=== PATIENT | female | born 1960 | race Caucasian/White ===

== ENCOUNTER 2019-06-30 13:57 | Emergency (ER) | payer OTHER ==
[2019-06-30] MEDS ORDERED: Famotidine 20 MG/2 ML SDV IVPUSH ONE (14:28)
[2019-06-30] MEDS ORDERED: Alum Hydrox/Mag Hydrox/Simeth 30 ML, Lidocaine 2% 15 ML PO ONE ×2 (14:28)
--- NOTE | 2019-06-30 14:40 | EDM.PDOC ---
ED HPI GENERAL MEDICAL PROBLEM - General Chief Complaint: Chest Pain Stated Complaint: CHEST PAIN AND BACK PAIN Time Seen by Provider: 06/30/19 14:11 Source of Information: Reports: Patient History Limitations: Reports: No Limitations - History of Present Illness INITIAL COMMENTS - FREE TEXT/NARRATIVE: Dawn Galvez is a 59 y/o female with history of diabetes emergency room chief complaints of chest pain. She reports pain started this morning at about 930. Reports pain is in the middle of her chest and radiates to her back. She denies shortness of breath, nausea, vomiting, fever or chills. Reports the pain feels almost like she is having heartburn. She attempted to take 5 Tums but has had little to no relief. She currently reports her pain is a 6 out of 10 at no apparent distress at this time. Onset Date: 06/30/19 Onset Time: 08:30 Duration: Intermittent Location: Reports: Chest, Back Quality: Reports: Ache, Dull Severity: Mild Improves with: Reports: None Worsens with: Reports: None Associated Symptoms: Reports: Chest Pain. Denies: Cough, Fever/Chills, Nausea/ Vomiting, Shortness of Breath Chest Pain Score (Numeric/FACES): 7 - Related Data Allergies Allergy/AdvReac Type Severity Reaction Status Date / Time No Known Allergies Allergy Verified 06/30/19 14:12 Home Meds: Home Meds Glimepiride [Amaryl] 4 mg PO DAILY 01/11/14 [History] Multivitamin [Multivitamins] 1 each PO DAILY 01/11/14 [History] Cinnamon Bark [Cinnamon] 1,000 mg PO DAILY 06/30/19 [History] Empagliflozin [Jardiance] 10 mg PO DAILY 06/30/19 [History] Famotidine [Pepcid] 20 mg PO DAILY #30 tab 06/30/19 [Rx] atorvaSTATin [Lipitor] 80 mg PO BEDTIME 06/30/19 [History] sitaGLIPtin Phos/Metformin HCl [Janumet Xr 50-1,000 mg Tablet] 50 - 1,000 mg PO BID 06/30/19 [History] Past Medical History HEENT History: Reports: Cataract, Impaired Vision Other HEENT History: used to wear eyeglasses, now wears "cheaters" for reading. Cardiovascular History: Reports: High Cholesterol, Other (See Below) Other Cardiovascular History: leaky heart valve--"doesn't relax enough to close. 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: Musculoskeletal History: Reports: Fracture Endocrine/Metabolic History: Reports: Diabetes, Type II Hematologic History: Reports: Anemia Other Hematologic History: during Dermatologic History: Reports: Eczema - Infectious Disease History Infectious Disease History: Reports: Chicken Pox, Measles - Past Surgical History HEENT Surgical History: Reports: Cataract Surgery GI Surgical History: Reports: Colonoscopy Female Surgical History: Reports: Tubal Ligation Social & Family History - Tobacco Use Smoking Status *Q: Never Smoker - Caffeine Use Caffeine Use: Reports: Soda - Recreational Drug Use Recreational Drug Use: No ED ROS GENERAL - Review of Systems Review Of Systems: See Below Constitutional: Denies: Fever, Chills HEENT: Reports: Glasses Respiratory: Denies: Shortness of Breath Cardiovascular: Denies: Chest Pain GI/Abdominal: Reports: Abdominal Pain. Denies: Constipation, Diarrhea, Nausea, Vomiting : Reports: No Symptoms Musculoskeletal: Reports: Shoulder Pain Skin: Reports: No Symptoms Neurological: Reports: No Symptoms Psychiatric: Reports: No Symptoms Hematologic/Lymphatic: Reports: No Symptoms Immunologic: Reports: No Symptoms ED EXAM, GENERAL - Physical Exam Exam: See Below Exam Limited By: No Limitations General Appearance: Alert, WD/WN, No Apparent Distress Neck: Normal Inspection, Supple, Non-Tender, Full Range of Motion Respiratory/Chest: No Respiratory Distress, Lungs Clear, Normal Breath Sounds, No Accessory Muscle Use, Chest Non-Tender Cardiovascular: Normal Peripheral Pulses, Regular Rate, Rhythm, No Edema, No Gallop, No JVD, No Murmur, No Rub GI/Abdominal: Normal Bowel Sounds, Soft, Non-Tender, No Organomegaly, No Distention, No Abnormal Bruit, No Mass, Pelvis Stable Back Exam: Normal Inspection, Full Range of Motion Extremities: Normal Inspection, Normal Range of Motion, Non-Tender, No Pedal Edema, Normal Capillary Refill Neurological: Alert, Oriented, CN II-XII Intact, Normal Cognition, Normal Gait Psychiatric: Normal Affect, Normal Mood Skin Exam: Warm, Dry, Intact, Normal Color Lymphatic: No Adenopathy EKG INTERPRETATION EKG Date: 06/30/19 Time: 14:06 Rhythm: NSR Rate (Beats/Min): 79 Course - Vital Signs Text/Narrative:: Dawn Galvez is a 59-year-old female with a history of diabetes comes in with chief complaints of new onset chest pain that started this morning. She describes the pain as a dull burning sensation similar to indigestion. Reports taking 5 Tums at home but has had little to no relief. I will order an EKG, lab work, chest x-ray. I will medicate with IV Pepcid and GI cocktail. Last Recorded V/S: Last Vital Signs Temp 97.8 F 06/30/19 14:00 Pulse 86 06/30/19 14:00 Resp 16 06/30/19 14:00 BP 141/60 H 06/30/19 14:00 Pulse Ox 95 06/30/19 14:00 - Orders/Labs/Meds Orders: Active Orders 24 hr Category Date Time Status EKG Documentation Completion [RC] STAT Care 06/30/19 14:11 Active Chest 2V [CR] Stat Exams 06/30/19 14:12 Taken Labs: Laboratory Tests 06/30/19 06/30/19 06/30/19 Range/Units 14:05 14:05 14:05 WBC 9.04 (3.98-10.04) K/mm3 RBC 5.08 (3.98-5.22) M/mm3 Hgb 13.8 (11.2-15.7) gm/dl Hct 43.2 (34.1-44.9) % MCV 85.0 (79.4-94.8) fl MCH 27.2 (25.6-32.2) pg MCHC 31.9 L (32.2-35.5) g/dl RDW Std Deviation 44.7 (36.4-46.3) fL Plt Count 280 (182-369) K/mm3 MPV 9.1 L (9.4-12.3) fl Neut % (Auto) 69.2 (34.0-71.1) % Lymph % (Auto) 20.5 (19.3-51.7) % [place] % (Auto) 8.6 (4.7-12.5) % Eos % (Auto) 1.4 (0.7-5.8) Baso % (Auto) 0.1 (0.1-1.2) % Neut # (Auto) 6.25 H (1.56-6.13) K/mm3 Lymph # (Auto) 1.85 (1.18-3.74) K/mm3 [place] # (Auto) 0.78 H (0.24-0.36) K/mm3 Eos # (Auto) 0.13 (0.04-0.36) K/mm3 Baso # (Auto) 0.01 (0.01-0.08) K/mm3 PT 9.6 L (9.7-12.0) SECONDS INR 0.93 Sodium 144 (136-145) mEq/L Potassium 3.9 (3.5-5.1) mEq/L Chloride 106 (98-107) mEq/L Carbon Dioxide 29 (21-32) mEq/L Anion Gap 12.9 (5-15) BUN 12 (7-18) mg/dL Creatinine 0.8 (0.55-1.02) mg/dL Est Cr Clr Drug Dosing 55.06 mL/min Estimated GFR (MDRD) > 60 (>60) mL/min BUN/Creatinine Ratio 15.0 (14-18) Glucose 269 H (74-106) mg/dL Calcium 9.9 (8.5-10.1) mg/dL Total Bilirubin 0.4 (0.2-1.0) mg/dL AST 16 (15-37) U/L ALT 31 (14-59) U/L Alkaline Phosphatase 119 H (46-116) U/L Troponin I < 0.017 (0.00-0.056) ng/mL Total Protein 7.4 (6.4-8.2) g/dl Albumin 3.8 (3.4-5.0) g/dl Globulin 3.6 gm/dL Albumin/Globulin Ratio 1.1 (1-2) Lipase (73-393) U/L 05/05/20 Range/Units 14:05 WBC (3.98-10.04) K/mm3 RBC (3.98-5.22) M/mm3 Hgb (11.2-15.7) gm/dl Hct (34.1-44.9) % MCV (79.4-94.8) fl MCH (25.6-32.2) pg MCHC (32.2-35.5) g/dl RDW Std Deviation (36.4-46.3) fL Plt Count (182-369) K/mm3 MPV (9.4-12.3) fl Neut % (Auto) (34.0-71.1) % Lymph % (Auto) (19.3-51.7) % [place] % (Auto) (4.7-12.5) % Eos % (Auto) (0.7-5.8) Baso % (Auto) (0.1-1.2) % Neut # (Auto) (1.56-6.13) K/mm3 Lymph # (Auto) (1.18-3.74) K/mm3 [place] # (Auto) (0.24-0.36) K/mm3 Eos # (Auto) (0.04-0.36) K/mm3 Baso # (Auto) (0.01-0.08) K/mm3 PT (9.7-12.0) SECONDS INR Sodium (136-145) mEq/L Potassium (3.5-5.1) mEq/L Chloride (98-107) mEq/L Carbon Dioxide (21-32) mEq/L Anion Gap (5-15) BUN (7-18) mg/dL Creatinine (0.55-1.02) mg/dL Est Cr Clr Drug Dosing mL/min Estimated GFR (MDRD) (>60) mL/min BUN/Creatinine Ratio (14-18) Glucose (74-106) mg/dL Calcium (8.5-10.1) mg/dL Total Bilirubin (0.2-1.0) mg/dL AST (15-37) U/L ALT (14-59) U/L Alkaline Phosphatase (46-116) U/L Troponin I (0.00-0.056) ng/mL Total Protein (6.4-8.2) g/dl Albumin (3.4-5.0) g/dl Globulin gm/dL Albumin/Globulin Ratio (1-2) Lipase 186 (73-393) U/L Meds: Medications Discontinued Medications Generic Name Dose Route Start Last Admin Trade Name Freq PRN Reason Stop Dose Admin Al Hydroxide/Mg Hydroxide 30 0 ml 06/30/19 14:28 06/30/19 14:57 ml/ Lidocaine HCl 15 ml PO 06/30/19 14:29 45 ml ONETIME ONE Administration Famotidine 20 mg 06/30/19 14:28 06/30/19 14:56 Pepcid IVPUSH 06/30/19 14:29 20 mg ONETIME ONE Administration - Re-Assessments/Exams Free Text/Narrative Re-Assessment/Exam: 06/30/19 14:52 EKG revealed normal sinus rhythm. WBCs 9.04, RBCs 5.08, hemoglobin 13.8, hematocrit 43.2, platelet count 280, PT 9.6, INR 0.93, sodium 144, potassium 3.9 , chloride 106, CO2 29, BUN 12, creatinine 0.8, glucose 269, alk phos 119, lipase 186, and troponin 0 0.017. 06/30/19 15:33 Patient reports she is feeling better. States that her pain is now a 1. Doing her labs which were unremarkable EKG which is normal sinus rhythm and chest x- ray revealed no acute findings. I will discharge home with Pepcid. I discussed test results with patient and formulated a plan of care. She verbalized understanding and is comfortable with plan for discharge. Instructed to follow-up with the PCP. Instructed patient to return to the emergency room for any new acute worsening symptoms. Patient verbalized understanding and is comfortable plan of discharge. Patient stable at time of discharge. Departure - Departure Time of Disposition: 15:35 Disposition: Home, Self-Care 01 Condition: Good Clinical Impression: GERD (gastroesophageal reflux disease) Qualifiers: Esophagitis presence: without esophagitis Qualified Code(s): K21.9 - Gastro- esophageal reflux disease without esophagitis Prescriptions: Famotidine [Pepcid] 20 mg PO DAILY #30 tab Instructions: Indigestion, [id number], Nonspecific Chest Pain, Adult, Easy-to -Read, Heartburn, [id number], Food Choices for Gastroesophageal Reflux Disease , Adult, [id number] Referrals: Yi Foster NP [Primary Care Provider] - Forms: ED Department Discharge Additional Instructions: Seen and evaluated today for chest pain. Your EKG revealed normal sinus rhythm no regular beats. Your studies were unremarkable. Chest x-ray revealed no acute findings. I think that your symptoms are related to GERD or acid reflux. You have been prescribed Pepcid take this medication as prescribed. You may want to decrease your intake of caffeine and spicy food. Follow-up with your PCP. Return to the emergency room for new acute worsening symptoms. Sepsis Event Note - Evaluation Sepsis Screening Result: No Definite Risk - Focused Exam Vital Signs: Vital Signs Temp Pulse Resp BP Pulse Ox 06/30/19 14:00 97.8 F 86 16 141/60 H 95 Date Exam was Performed: 06/30/19 Time Exam was Performed: 15:32 - My Orders Last 24 Hours: My Active Orders 06/30/19 14:11 EKG Documentation Completion [RC] STAT 06/30/19 14:12 Chest 2V [CR] Stat - Assessment/Plan Last 24 Hours: My Active Orders 06/30/19 14:11 EKG Documentation Completion [RC] STAT 06/30/19 14:12 Chest 2V [CR] Stat
[2019-06-30 16:37] VITALS: BP 117/52; PULSE 74
--- NOTE | 2019-07-01 08:31 | CR ---
Chest: PA and lateral views of the chest were obtained. Comparison: No prior chest imaging is available. Slight atelectasis within the right perihilar region is noted. Perihilar markings are mildly increased most likely due to bronchitis. Lungs otherwise are clear. Bony structures appear within normal limits for the patient's age. Impression: 1. Findings suspicious for mild perihilar bronchitis and mild right-sided atelectasis. Diagnostic code #3 This report was dictated in MDT
== END 2019-06-30 16:30 | disposition home or self-care (01) ==
LOC: JD.ED 13:57
DX: K21.9 Gastro-esophageal reflux disease without esophagitis (principal); E78.00 Pure hypercholesterolemia, unspecified; E11.9 Type 2 diabetes mellitus without complications; Z98.51 Tubal ligation status; Z79.899 Other long term (current) drug therapy; Z79.84 Long term (current) use of oral hypoglycemic drugs
CPT/HCPCS: 36415; 71046; 80053; 83690; 84484; 85025; 85610; 93005; 96374; 99285; A9270; J3490; 93010; 99283